=== PATIENT | male | born 1970 | race Two or more races ===

== ENCOUNTER 2017-10-07 12:38 | Emergency (ER) | payer BC, OTHER ==
[~2017-10-07] VITALS: Ht 172.7 cm; Wt 131.5 kg
[2017-10-07 12:46] VITALS: BP 159/92
[2017-10-07] MEDS ORDERED: KETOROLAC TROMETH 60MG/2ML VIAL IM ONE (13:45)
== END 2017-10-07 14:01 | disposition home or self-care (01) ==
LOC: ER 12:38
DX: M17.11 Unilateral primary osteoarthritis, right knee (principal); G89.29 Other chronic pain
CPT/HCPCS: 73562; 96372; 99284; J1885

== ENCOUNTER 2018-04-02 03:33 | Emergency (ER) | payer BC ==
[~2018-04-02] VITALS: Ht 167.6 cm; Wt 136.1 kg
[2018-04-02 03:54] VITALS: BP 138/99
[2018-04-02] MEDS ORDERED: cefTRIAXone SOD 1,000 MG VL IM ONE (05:15)
[2018-04-02] MEDS ORDERED: IBUPROFEN 800 MG TAB PO ONE (05:45)
== END 2018-04-02 05:55 | disposition home or self-care (01) ==
LOC: ER 03:35
DX: L02.11 Cutaneous abscess of neck (principal); H10.32 Unspecified acute conjunctivitis, left eye
CPT/HCPCS: 82962; 96372; 99283; J0696

== ENCOUNTER 2020-04-08 16:44 | Inpatient (IN) | payer BC ==
[~2020-04-08] VITALS: Ht 167.6 cm; Wt 127.0 kg
[2020-04-08] MEDS ORDERED: ACETAMINOPHEN 500 MG TAB PO ONE (17:00)
[2020-04-08 18:04] LABS: Basophils # (auto) 0 10 ^3/uL (0-0.2); Basophils % (auto) 0.3 % (0.0-2.0); Eosinophils # (auto) 0 10 ^3/uL (0-0.8); Hematocrit 38.8 % (41.0-53.0); Hemoglobin 13.6 g/dL (13.5-17.5); Lymphocytes # (auto) 0.8 10 ^3/uL (0.4-5.4); Lymphocytes % (auto) 10.8 % (10.0-50.0); Mean Corpuscular Hemoglobin 29.9 pg (28.0-32.0); Mean Corpuscular Volume 85.3 fL (80.0-100.0); Monocytes # (auto) 0.4 10 ^3/uL (0-1.3); Monocytes % (auto) 5.9 % (0.0-12.0); Neutrophils # (auto) 6.1 10 ^3/uL (1.6-8.6); Nucleated Red Blood Cells % 0.1 %; Platelet Count (auto) 213 10^3/uL (140-450); Red Blood Cells 4.55 10^6/uL (4.5-5.90); Red Cell Distribution Width 13.4 % (11.8-14.3); White Blood Cell 7.4 10^3/uL (4.4-10.8)
[2020-04-08 18:43] LABS: Calcium 8.4 mg/dL (8.5-10.1); Potassium 4.1 mmol/L (3.5-5.1)
[2020-04-08 18:46] LABS: BUN/Creatinine Ratio 12.3; Bilirubin, Total 0.6 mg/dL (0.2-1.0); Total Protein 7.9 g/dL (6.4-8.2)
[2020-04-08] MEDS ORDERED: AZITHROMYCIN 500MG/ 250ML 250 ML IV ONE (20:30)
[2020-04-08] MEDS ORDERED: DexAMETHasone SOD PHOS 10MG/1ML VIAL INJ IV ONE (20:30)
[2020-04-08] MEDS ORDERED: ONDANSETRON HCL 4 MG/2 ML VIAL IV PRN (22:00)
[2020-04-08] MEDS ORDERED: DEXTROSE (50%) 50ML SYRG IV PRN (22:00)
[2020-04-08] MEDS ORDERED: MORPHINE SULF INJ 2 MG/ML SYRINGE 1ML IV PRN (22:00)
[2020-04-08] MEDS ORDERED: ACETAMINOPHEN 500 MG TAB PO PRN (22:00)
[2020-04-08] MEDS ORDERED: NITROGLYCERIN 0.4 MG SL TAB SL PRN (22:00)
[2020-04-08 22:52] LABS: INR 1.21 (0.9-1.15); Partial Thromboplastin Time 29.9 sec (23.0-31.2)
[2020-04-08 23:40] LABS: CRP High Sensitivity > 19.0 mg/dL (< 0.3); Lactate Dehydrogenase 541 U/L (87-241); Magnesium 2.2 mg/dL (1.6-2.6)
[2020-04-08] MEDS: FAMOTIDINE 20 MG TAB PO SCH (23:49)
[2020-04-08] MEDS: ATORVASTATIN 20 MG TAB PO SCH (23:49)
[2020-04-08] MEDS: ACCU-CHEK COMFORT CURVE STRIP VI SCH (23:50)
[2020-04-08] MEDS: ENOXAPARIN SOD 40 MG/0.4 ML SYRINGE SC SCH (23:50)
[2020-04-08] MEDS: SODIUM CHLORIDE 0.9% 1,000 ML IV SCH (23:51)
[2020-04-09] MEDS: InsuLIN REG 1unit/0.01ml Soln (100units/ml) SC SCH ×5 (00:02→22:36)
[2020-04-09 06:06] LABS: Basophils # (auto) 0 10 ^3/uL (0-0.2); Basophils % (auto) 0.2 % (0.0-2.0); Eosinophils # (auto) 0 10 ^3/uL (0-0.8); Hematocrit 40.4 % (41.0-53.0); Lymphocytes # (auto) 0.6 10 ^3/uL (0.4-5.4); Lymphocytes % (auto) 8.7 % (10.0-50.0); Mean Corpuscular Hemoglobin 30.2 pg (28.0-32.0); Mean Corpuscular Hgb Conc. 34.8 g/dL (32.0-36.0); Mean Corpuscular Volume 86.8 fL (80.0-100.0); Monocytes # (auto) 0.1 10 ^3/uL (0-1.3); Monocytes % (auto) 2.2 % (0.0-12.0); Neutrophils # (auto) 5.8 10 ^3/uL (1.6-8.6); Neutrophils % (auto) 88.9 % (37.0-80.0); Nucleated Red Blood Cells % 0.1 %; Platelet Count (auto) 250 10^3/uL (140-450); Red Blood Cells 4.65 10^6/uL (4.5-5.90); Red Cell Distribution Width 13.4 % (11.8-14.3); White Blood Cell 6.6 10^3/uL (4.4-10.8)
[2020-04-09 06:28] LABS: Albumin 3.1 g/dL (3.4-5.0); Calcium 9.3 mg/dL (8.5-10.1)
[2020-04-09 06:31] LABS: BUN/Creatinine Ratio 15.3; Bilirubin, Total 0.6 mg/dL (0.2-1.0); Total Protein 8.3 g/dL (6.4-8.2)
[2020-04-09] MEDS: ACCU-CHEK COMFORT CURVE STRIP VI SCH ×4 (06:37→22:22)
[2020-04-09] MEDS: AZITHROMYCIN 500MG/ 250ML 250 ML IV SCH (09:21)
[2020-04-09] MEDS: ZINC SULFATE 220mg CAP or TAB PO SCH (09:21)
[2020-04-09] MEDS: CHOLECALCIFEROL (VITD3) 2,000 UNIT CAP PO SCH (09:21)
[2020-04-09] MEDS: ENOXAPARIN SOD 40 MG/0.4 ML SYRINGE SC SCH ×2 (09:21→22:22)
[2020-04-09] MEDS: ASCORBIC ACID 1,000 MG TAB PO SCH (09:21)
[2020-04-09] MEDS: FAMOTIDINE 20 MG TAB PO SCH (09:21)
[2020-04-09] MEDS: DexAMETHasone SOD PHOS 10MG/1ML VIAL INJ IV SCH (09:21)
[2020-04-09] MEDS ORDERED: LISINOPRIL 10 MG TAB PO SCH (10:00)
[2020-04-09] MEDS: SODIUM CHLORIDE 0.9% 1,000 ML IV SCH (11:35)
[2020-04-09] MEDS ORDERED: REMDESIVIR PER PHARMACY 0 ML IV SCH (14:45)
[2020-04-09] MEDS ORDERED: DEXTROSE (50%) 50ML SYRG IV PRN (14:45)
[2020-04-09] MEDS ORDERED: BUDESONIDE (INHALATION) 0.5 MG/2 ML NEB NEB ONE (15:15)
[2020-04-09] MEDS ORDERED: REMDESIVIR 200 MG in NS 210ml LOADING DOSE ADULT IV ONE (17:00)
[2020-04-09] MEDS: BUDESONIDE (INHALATION) 180 MCG IH IN SCH (18:42)
[2020-04-09] MEDS ORDERED: BUDESONIDE (INHALATION) 0.5 MG/2 ML NEB NEB SCH (22:00)
[2020-04-09] MEDS ORDERED: PATIENTS OWN MEDICATION (PULMICORT 360 MCG) IN SCH (22:00)
[2020-04-09] MEDS: ATORVASTATIN 20 MG TAB PO SCH (22:16)
[2020-04-10] MEDS: InsuLIN REG 1unit/0.01ml Soln (100units/ml) SC SCH ×4 (06:33→22:59)
[2020-04-10] MEDS: ACCU-CHEK COMFORT CURVE STRIP VI SCH ×4 (06:35→22:00)
[2020-04-10 08:00] VITALS: BP 125/75
[2020-04-10 08:08] LABS: Potassium 3.8 mmol/L (3.5-5.1)
[2020-04-10 08:12] LABS: Albumin 2.8 g/dL (3.4-5.0); BUN/Creatinine Ratio 22.2
[2020-04-10 08:14] LABS: Bilirubin, Total 0.4 mg/dL (0.2-1.0); Total Protein 7.4 g/dL (6.4-8.2)
[2020-04-10] MEDS: ZINC SULFATE 220mg CAP or TAB PO SCH (09:11)
[2020-04-10] MEDS: DexAMETHasone SOD PHOS 10MG/1ML VIAL INJ IV SCH (09:11)
[2020-04-10] MEDS: AZITHROMYCIN 500MG/ 250ML 250 ML IV SCH (09:11)
[2020-04-10] MEDS: ENOXAPARIN SOD 40 MG/0.4 ML SYRINGE SC SCH (09:11)
[2020-04-10] MEDS: CHOLECALCIFEROL (VITD3) 2,000 UNIT CAP PO SCH (09:14)
[2020-04-10] MEDS: ASCORBIC ACID 1,000 MG TAB PO SCH (09:14)
[2020-04-10] MEDS: BUDESONIDE (INHALATION) 180 MCG IH IN SCH ×2 (10:00→22:00)
[2020-04-10] MEDS ORDERED: FUROSEMIDE 20 MG/2 ML VIAL IV ONE (11:45)
[2020-04-10] MEDS ORDERED: POTASSIUM CHL 20 Meq TABLET PO ONE (11:45)
[2020-04-10] MEDS ORDERED: ASPirin 81 mg TAB PO ONE (13:15)
[2020-04-10] MEDS: REMDESIVIR 100 MG in SODIUM CHL 0.9% 250 ML IV SCH (16:07)
[2020-04-10 16:08] VITALS: BP 125/65
[2020-04-10 16:24] VITALS: BP 138/89
[2020-04-10] MEDS: ALBUTEROL SULF HFA 90MCG INH 200DOSE IN PRN ×2 (20:20→20:23)
[2020-04-10 20:58] LABS: Urine Bacteria FEW /hpf (None Seen); Urine Blood Negative /uL (Negative); Urine Mucus FEW (None Seen); Urine Specific Gravity 1.008 (1.001-1.035); Urine Sperm PRESENT /hpf (None Seen); Urine WBC 1 /hpf (0 - 3)
[2020-04-10] MEDS ORDERED: HYDROcodone-ACET 5/325MG TAB PO PRN (22:45)
[2020-04-10] MEDS: ATORVASTATIN 20 MG TAB PO SCH (22:56)
[2020-04-10] MEDS: ENOXAPARIN SOD 100 MG/1 ML SYRINGE SC SCH (23:00)
[2020-04-11] VITALS (8 sets, daily range): BP systolic 111–138; BP diastolic 55–87
[2020-04-11] MEDS: ACCU-CHEK COMFORT CURVE STRIP VI SCH ×4 (06:21→21:48)
[2020-04-11] MEDS: InsuLIN REG 1unit/0.01ml Soln (100units/ml) SC SCH ×4 (06:21→21:48)
[2020-04-11 08:41] LABS: Calcium 9.4 mg/dL (8.5-10.1); Potassium 4.7 mmol/L (3.5-5.1)
[2020-04-11 08:45] LABS: Albumin 3.1 g/dL (3.4-5.0)
[2020-04-11 09:14] LABS: Bilirubin, Total 0.4 mg/dL (0.2-1.0); Total Protein 7.6 g/dL (6.4-8.2)
[2020-04-11] MEDS ORDERED: ASPirin 81 mg TAB PO SCH (10:00)
[2020-04-11] MEDS: BUDESONIDE (INHALATION) 180 MCG IH IN SCH ×3 (10:00→22:01)
[2020-04-11] MEDS: POTASSIUM CHL 20 Meq TABLET PO SCH (11:17)
[2020-04-11] MEDS: DexAMETHasone SOD PHOS 10MG/1ML VIAL INJ IV SCH (11:18)
[2020-04-11] MEDS: ZINC SULFATE 220mg CAP or TAB PO SCH (11:18)
[2020-04-11] MEDS: ASCORBIC ACID 1,000 MG TAB PO SCH (11:18)
[2020-04-11] MEDS: FUROSEMIDE 20 MG/2 ML VIAL IV SCH (11:19)
[2020-04-11] MEDS: CHOLECALCIFEROL (VITD3) 2,000 UNIT CAP PO SCH (11:19)
[2020-04-11] MEDS: ENOXAPARIN SOD 100 MG/1 ML SYRINGE SC SCH (11:19)
[2020-04-11] MEDS: AZITHROMYCIN 500MG/ 250ML 250 ML IV SCH (11:28)
[2020-04-11] MEDS ORDERED: FAMOTIDINE (10MG/ML) 2ML VL IV ONE (13:15)
[2020-04-11] MEDS: REMDESIVIR 100 MG in SODIUM CHL 0.9% 250 ML IV SCH (15:42)
[2020-04-11] MEDS: ENOXAPARIN SOD 40 MG/0.4 ML SYRINGE SC SCH (21:32)
[2020-04-11] MEDS: ATORVASTATIN 20 MG TAB PO SCH (21:32)
[2020-04-11] MEDS: FAMOTIDINE (10MG/ML) 2ML VL IV SCH (21:32)
[2020-04-12] VITALS: BP 129/55
[2020-04-12] MEDS: InsuLIN REG 1unit/0.01ml Soln (100units/ml) SC SCH ×4 (06:10→22:55)
[2020-04-12] MEDS: ACCU-CHEK COMFORT CURVE STRIP VI SCH ×4 (06:10→22:00)
[2020-04-12] MEDS: ALBUTEROL SULF HFA 90MCG INH 200DOSE IN PRN ×2 (07:35→21:20)
[2020-04-12 08:00] VITALS: BP 130/87
[2020-04-12 08:19] LABS: Basophils # (auto) 0 10 ^3/uL (0-0.2); Basophils % (auto) 0.1 % (0.0-2.0); Eosinophils # (auto) 0 10 ^3/uL (0-0.8); Hematocrit 38.3 % (41.0-53.0); Hemoglobin 13.6 g/dL (13.5-17.5); Lymphocytes # (auto) 1.3 10 ^3/uL (0.4-5.4); Lymphocytes % (auto) 13.4 % (10.0-50.0); Mean Corpuscular Hemoglobin 29.8 pg (28.0-32.0); Mean Corpuscular Hgb Conc. 35.4 g/dL (32.0-36.0); Mean Corpuscular Volume 84.1 fL (80.0-100.0); Monocytes # (auto) 1.1 10 ^3/uL (0-1.3); Monocytes % (auto) 10.7 % (0.0-12.0); Neutrophils # (auto) 7.6 10 ^3/uL (1.6-8.6); Neutrophils % (auto) 75.8 % (37.0-80.0); Nucleated Red Blood Cells % 0.1 %; Platelet Count (auto) 344 10^3/uL (140-450); Red Blood Cells 4.55 10^6/uL (4.5-5.90); Red Cell Distribution Width 13.2 % (11.8-14.3)
[2020-04-12 08:29] LABS: Albumin 2.9 g/dL (3.4-5.0); Calcium 9.1 mg/dL (8.5-10.1); Potassium 3.8 mmol/L (3.5-5.1)
[2020-04-12 08:34] LABS: BUN/Creatinine Ratio 22.2; Bilirubin, Total 0.5 mg/dL (0.2-1.0); Total Protein 7.7 g/dL (6.4-8.2)
[2020-04-12] MEDS: ENOXAPARIN SOD 40 MG/0.4 ML SYRINGE SC SCH ×2 (10:00→22:56)
[2020-04-12] MEDS: FAMOTIDINE (10MG/ML) 2ML VL IV SCH ×2 (10:00→22:56)
[2020-04-12] MEDS: CHOLECALCIFEROL (VITD3) 2,000 UNIT CAP PO SCH (10:00)
[2020-04-12] MEDS: DexAMETHasone SOD PHOS 10MG/1ML VIAL INJ IV SCH (10:50)
[2020-04-12] MEDS: ASCORBIC ACID 1,000 MG TAB PO SCH (10:50)
[2020-04-12] MEDS: POTASSIUM CHL 20 Meq TABLET PO SCH (10:50)
[2020-04-12] MEDS: ZINC SULFATE 220mg CAP or TAB PO SCH (10:50)
[2020-04-12] MEDS: AZITHROMYCIN 500MG/ 250ML 250 ML IV SCH (10:51)
[2020-04-12] MEDS: FUROSEMIDE 20 MG/2 ML VIAL IV SCH (10:51)
[2020-04-12 15:19] VITALS: BP 117/86
[2020-04-12] MEDS: REMDESIVIR 100 MG in SODIUM CHL 0.9% 250 ML IV SCH (15:20)
[2020-04-12 15:35] VITALS: BP 121/77
[2020-04-12 16:11] VITALS: BP 121/77
[2020-04-12] MEDS: BUDESONIDE (INHALATION) 180 MCG IH IN SCH (21:20)
[2020-04-12] MEDS: ATORVASTATIN 20 MG TAB PO SCH (22:56)
[2020-04-13] VITALS: BP 109/76
[2020-04-13] MEDS: BUDESONIDE (INHALATION) 180 MCG IH IN SCH ×3 (06:24→19:40)
[2020-04-13] MEDS: ALBUTEROL SULF HFA 90MCG INH 200DOSE IN PRN ×3 (06:24→19:40)
[2020-04-13] MEDS: InsuLIN REG 1unit/0.01ml Soln (100units/ml) SC SCH ×4 (06:25→21:10)
[2020-04-13] MEDS: ACCU-CHEK COMFORT CURVE STRIP VI SCH ×4 (06:39→21:08)
[2020-04-13 06:45] LABS: Potassium 3.8 mmol/L (3.5-5.1)
[2020-04-13 06:51] LABS: Albumin 3.1 g/dL (3.4-5.0); BUN/Creatinine Ratio 28.2
[2020-04-13 06:54] LABS: Bilirubin, Total 0.5 mg/dL (0.2-1.0); Total Protein 7.6 g/dL (6.4-8.2)
[2020-04-13 08:00] VITALS: BP 108/71
[2020-04-13 08:10] VITALS: BP 108/71
[2020-04-13] MEDS: CHOLECALCIFEROL (VITD3) 2,000 UNIT CAP PO SCH (10:00)
[2020-04-13] MEDS: ENOXAPARIN SOD 40 MG/0.4 ML SYRINGE SC SCH ×2 (10:00→21:07)
[2020-04-13] MEDS: FAMOTIDINE (10MG/ML) 2ML VL IV SCH ×2 (10:00→21:07)
[2020-04-13] MEDS: POTASSIUM CHL 20 Meq TABLET PO SCH (10:36)
[2020-04-13] MEDS: ASCORBIC ACID 1,000 MG TAB PO SCH (10:36)
[2020-04-13] MEDS: ZINC SULFATE 220mg CAP or TAB PO SCH (10:36)
[2020-04-13] MEDS: AZITHROMYCIN 500MG/ 250ML 250 ML IV SCH (10:37)
[2020-04-13] MEDS: DexAMETHasone SOD PHOS 10MG/1ML VIAL INJ IV SCH (10:37)
[2020-04-13] MEDS: FUROSEMIDE 20 MG/2 ML VIAL IV SCH (10:37)
[2020-04-13 16:11] VITALS: BP 105/76
[2020-04-13 16:31] VITALS: BP 105/76
[2020-04-13] MEDS: REMDESIVIR 100 MG in SODIUM CHL 0.9% 250 ML IV SCH (16:54)
[2020-04-13 17:09] VITALS: BP 91/69
[2020-04-13] MEDS: TEMAZEPAM 15 MG CAP PO PRN (21:06)
[2020-04-13] MEDS: ATORVASTATIN 20 MG TAB PO SCH (21:09)
[2020-04-14] VITALS: BP 110/70
[2020-04-14] MEDS: InsuLIN REG 1unit/0.01ml Soln (100units/ml) SC SCH ×4 (06:16→22:57)
[2020-04-14] MEDS: ACCU-CHEK COMFORT CURVE STRIP VI SCH ×4 (06:16→22:00)
[2020-04-14 08:00] VITALS: BP 99/72
[2020-04-14] MEDS: FUROSEMIDE 20 MG/2 ML VIAL IV SCH (10:00)
[2020-04-14] MEDS: ENOXAPARIN SOD 40 MG/0.4 ML SYRINGE SC SCH ×2 (10:00→21:41)
[2020-04-14] MEDS: CHOLECALCIFEROL (VITD3) 2,000 UNIT CAP PO SCH (10:17)
[2020-04-14] MEDS: DexAMETHasone SOD PHOS 10MG/1ML VIAL INJ IV SCH (10:17)
[2020-04-14] MEDS: FAMOTIDINE (10MG/ML) 2ML VL IV SCH ×2 (10:17→21:41)
[2020-04-14] MEDS: ZINC SULFATE 220mg CAP or TAB PO SCH (10:18)
[2020-04-14] MEDS: POTASSIUM CHL 20 Meq TABLET PO SCH (10:18)
[2020-04-14] MEDS: ASCORBIC ACID 1,000 MG TAB PO SCH (10:19)
[2020-04-14 16:12] VITALS: BP 108/70
[2020-04-14] MEDS: ALBUTEROL SULF HFA 90MCG INH 200DOSE IN PRN (20:50)
[2020-04-14] MEDS: BUDESONIDE (INHALATION) 180 MCG IH IN SCH ×2 (20:50→21:58)
[2020-04-14] MEDS: TEMAZEPAM 15 MG CAP PO PRN (21:41)
[2020-04-14] MEDS: ATORVASTATIN 20 MG TAB PO SCH (21:41)
[2020-04-15] VITALS: BP 122/60
[2020-04-15] MEDS: InsuLIN REG 1unit/0.01ml Soln (100units/ml) SC SCH ×2 (06:38→11:30)
[2020-04-15] MEDS: ACCU-CHEK COMFORT CURVE STRIP VI SCH ×2 (06:39→11:30)
[2020-04-15 08:00] VITALS: BP 148/86
[2020-04-15] MEDS: ENOXAPARIN SOD 40 MG/0.4 ML SYRINGE SC SCH (10:00)
[2020-04-15] MEDS: DexAMETHasone SOD PHOS 10MG/1ML VIAL INJ IV SCH (10:13)
[2020-04-15] MEDS: FAMOTIDINE (10MG/ML) 2ML VL IV SCH (10:14)
[2020-04-15] MEDS: FUROSEMIDE 20 MG/2 ML VIAL IV SCH (10:14)
[2020-04-15] MEDS: ZINC SULFATE 220mg CAP or TAB PO SCH (10:15)
[2020-04-15] MEDS: ASCORBIC ACID 1,000 MG TAB PO SCH (10:18)
[2020-04-15] MEDS: CHOLECALCIFEROL (VITD3) 2,000 UNIT CAP PO SCH (10:18)
[2020-04-15] MEDS: POTASSIUM CHL 20 Meq TABLET PO SCH (10:18)
== END 2020-04-15 12:30 | disposition home or self-care (01) | DRG 871 ==
LOC: ER 16:44 → TELE 16:45 → TELE-WESTW 04-09 23:58
PROVIDERS: ADMIT Nurse Practitioner; ATTEND Internal Medicine
PROC: XW033E5 Introduction of Remdesivir Anti-infective into Peripheral Vein, Percutaneous Approach, New Technology Group 5 (ICD-10-PCS; principal; 2020-04-09)
DX: A41.89 Other specified sepsis (principal); U07.1 COVID-19; J96.01 Acute respiratory failure with hypoxia; J12.82 Pneumonia due to coronavirus disease 2019; D68.59 Other primary thrombophilia; Z68.42 Body mass index [BMI] 45.0-49.9, adult; E66.01 Morbid (severe) obesity due to excess calories; E11.9 Type 2 diabetes mellitus without complications; I10 Essential (primary) hypertension; E78.5 Hyperlipidemia, unspecified; G47.33 Obstructive sleep apnea (adult) (pediatric); R53.81 Other malaise; F41.9 Anxiety disorder, unspecified; Z79.82 Long term (current) use of aspirin; Z83.3 Family history of diabetes mellitus
CPT/HCPCS: 36415; 71045; 80053; 81001; 82270; 82306; 82728; 82962; 83036; 83605; 83615; 83735; 84443; 84484; 85025; 85379; 85610; 85730; 86141; 86850; 86900; 86901; 87040; 87426; 93306; 94640; 96361; 96365; 96375; G0378; J1100; J1815; J3490

== ENCOUNTER 2021-10-04 08:20 | Emergency (ER) | payer SELFPAY ==
[~2021-10-04] VITALS: Ht 165.1 cm; Wt 113.4 kg
[2021-10-04 09:27] VITALS: BP 137/87
[2021-10-04] MEDS ORDERED: IBUP800T26 PO (10:52)
[2021-10-04] MEDS ORDERED: KETOROLAC TROMETH 60MG/2ML VIAL IM ONE (11:00)
== END 2021-10-04 10:53 | disposition home or self-care (01) ==
LOC: ER 08:20
DX: S80.02XA Contusion of left knee, initial encounter (principal); M54.50 Low back pain, unspecified; I11.0 Hypertensive heart disease with heart failure; I50.9 Heart failure, unspecified; Z79.1 Long term (current) use of non-steroidal anti-inflammatories (NSAID); W18.39XA Other fall on same level, initial encounter; Y93.89 Activity, other specified; Y92.89 Other specified places as the place of occurrence of the external cause; Y99.8 Other external cause status
CPT/HCPCS: 73562; 73610; 93971; 96372; 99284; J1885

== ENCOUNTER 2022-01-13 06:43 | Emergency (ER) | payer OTHER ==
[~2022-01-13] VITALS: Ht 167.6 cm; Wt 127.0 kg
[~2022-01-13 06:43] MED LIST: IBUP800T26 PO
[2022-01-13 07:27] VITALS: BP 106/93
[2022-01-13] MEDS ORDERED: cefTRIAXone SOD 1,000 MG VL IM ONE (08:00)
[2022-01-13] MEDS ORDERED: CEPH-510 PO (08:01)
== END 2022-01-13 08:23 | disposition home or self-care (01) ==
LOC: ER 06:43
DX: J34.0 Abscess, furuncle and carbuncle of nose (principal); I10 Essential (primary) hypertension; E11.9 Type 2 diabetes mellitus without complications; Z79.1 Long term (current) use of non-steroidal anti-inflammatories (NSAID); Z79.899 Other long term (current) drug therapy
CPT/HCPCS: 10060; 96372; 99283; J0696

== ENCOUNTER 2024-07-01 16:43 | Emergency (ER) | payer OTHER ==
[~2024-07-01] VITALS: Ht 170.2 cm; Wt 118.5 kg
[~2024-07-01 16:43] MED LIST changes: +CEPH-510 PO; +IBUP-1455 PO; -IBUP800T26 PO
--- NOTE | 2024-07-01 17:20 | ED.PDOC ---
History of present illness HPI Comments 53 y.o male with PMHx of DM, HTN and hyperlipidemia, presents to the ED for a chief complaint of dizziness associated with nausea and excessive sweating that started this morning at work. Patient reports symptoms have progressively worsened as the day went on. Patient has been out of his metformin for 2 months, his called the PCP and has an appointment to see her this August 2024. Patient is non complaint with the rest of his medications. Patient denies any chest pain, fever, chills, vomiting, diarrhea, SOB. Patient admits to occasional use of alcohol but denies substance or tobacco use. Chief Complaint: Hyperglycemia Time Seen by MD: 16:57 Primary Care Provider: venus History of present illness: Nurses Notes, Medications, Allergies Allergies: Coded Allergies: NO KNOWN ALLERGIES (Unverified , 10/07/17) Home Meds Active Scripts Cephalexin ( Keflex 500) 500 Mg Cap, 1 CAP PO QID for 10 Days, #40 CAP Prov:ALLYN AMIN 01/13/22 Ibuprofen Micronized (Ibuprofen) 800 Mg Tab, 800 MG PO Q6HP PRN, #30 TAB 0 Refills Prov:NGOC MCCORD 10/04/21 Information Source: Patient Mode of Arrival: Ambulatory Timing: Hours Duration: Since onset [place]: Sweaty Symptoms: Sweaty History of: Diabetes Modifying factors: Nothing Associated signs and symptoms: Nausea Past Medical History PAST MEDICAL HISTORY: DM, High Lipids, HTN Surgical History (Other): right knee Family History Family History: Family hx of DM Social History Smoker: Non-Smoker Alcohol: Occasionally Drugs: Denies Drug Use Lives In: Home Constitutional: denies: chills, diaphoresis, fatigue, fever, malaise, sweats, weakness, others EENTM: denies: blurred vision, double vision, ear bleeding, ear discharge, ear drainage, ear pain, ear ringing, eye pain, eye redness, hearing loss, mouth pain, mouth swelling, nasal discharge, nose bleeding, nose congestion, nose pain, photophobia, tearing, throat pain, throat swelling, voice changes, others Respiratory: denies: cough, hemoptysis, orthopnea, SOB at rest, shortness of breath, SOB with excertion, stridor, wheezing, others Cardiovascular: denies: chest pain, dizzy spells, diaphoresis, Dyspnea on exertion, edema, irregular heart beat, left arm pain, lightheadedness, palpitations, PND, syncope, others Gastrointestinal: reports: nausea; denies: abdomen distended, abdominal pain, blood streaked bowels, constipated, diarrhea, dysphagia, difficulty swallowing, hematemesis, melena, poor appetite, poor fluid intake, rectal bleeding, rectal pain, vomiting, others Genitourinary: denies: burning, dysuria, flank pain, frequency, hematuria, incontinence, penile discharge, penile sore, pain, testicle pain, testicle swelling, urgency, others Neurological: reports: dizziness; denies: fainting, headache, left sided numbness, left sided weakness, numbness, paresthesia, pre-existing deficit, right sided numbness, right sided weakness, seizure, speech problems, tingling, tremors, weakness, others Musculoskeletal: denies: back pain, gout, joint pain, joint swelling, muscle pain, muscle stiffness, neck pain, others Integumetry: denies: bruises, change in color, change in hair/nails, dryness, laceration, lesions, lumps, rash, wounds, others Allergic/Immunocompromised: denies: Difficulty Healing, Frequent Infections, Hives, Itching, others Hematologic/Lymphatic: denies: anemia, blood clots, easy bleeding, easy bruising, swollen glands, others Endocrine: reports: excessive sweating; denies: excessive hunger, excessive thirst, excessive urination, flushing, intolerance to cold, intolerance to heat, unexplained weight gain, unexplained weight loss, others Psychiatric: denies: anxiety, bipolar disorder, depression, hopeless, panic disorder, schizophrenia, sleepless, suicidal, others Unable to Obtain due to: Dementia Physical Exam General Appearance: No Apparent Distress HEENT: Normal ENT Inspection, Pharynx Normal, TMs Normal Neck: Full Range of Motion, Non-Tender, Normal, Normal Inspection Respiratory: Chest Non-Tender, Lungs Clear, No Accessory Muscle Use, No Respiratory Distress, Normal Breath Sounds Cardiovascular: No Edema, No JVD, No Murmur, No Gallop, Normal Peripheral Pulses, Regular Rate/Rhythm Breast Exam: Deferred Gastrointestinal: No Organomegaly, Non Tender, No Pulsatile Mass, Normal Bowel Sounds, Soft Genitalia: Deferred Pelvic: Deferred Rectal: Deferred Extremities: No calf tenderness, Normal capillary refill, Normal inspection, Normal range of motion, Non-tender, No pedal edema Musculoskeletal : Apperance: Normal Neurologic: Alert, patient assistant II-XII nml as Tested, No Motor Deficits, Normal Affect, Normal Mood, No Sensory Deficits Cerebellar Function: Normal Reflexes: Normal Skin: Dry, Normal Color, Warm Lymphatic: No Adenopathy Was a procedure done? Was a procedure done?: No Differential Diagnosis (DM) Differential Diagnosis: Dehydration, Electrolyte Abnormality Other Differential Diagnosis medication noncompliance, vertigo, electrolyte imbalance X-Ray, Labs, Meds, VS Vital Signs Date Time Temp Pulse Resp B/P (MAP) Pulse Ox O2 Delivery O2 Flow Rate FiO2 07/01/24 19:41 98.3 85 18 114/78 (90) 93 98.3 07/01/24 17:04 98.6 95 16 123/96 (105) 94 98.6 Lab Test 07/01/24 19:23 07/01/24 17:37 07/01/24 17:12 07/01/24 16:59 Range/Units POC Glucose 338 H 362 H 70-106 mg/dl White Blood Count 9.7 4.4-10.8 10^3/uL Red Blood Count 5.07 4.5-5.90 10^6/uL Hemoglobin 14.7 13.5-17.5 g/dL Hematocrit 43.4 41.0-53.0 % Mean Corpuscular Volume 85.7 80.0-100.0 fL Mean Corpuscular Hemoglobin 29.1 28.0-32.0 pg Mean Corpuscular Hemoglobin Concent 33.9 32.0-36.0 g/dL Red Cell Distribution Width 13.2 11.8-14.3 % Platelet Count 283 140-450 10^3/uL Mean Platelet Volume 7.9 6.9-10.8 fL Neutrophils (%) (Auto) 66.3 37.0-80.0 % Lymphocytes (%) (Auto) 26.5 10.0-50.0 % Monocytes (%) (Auto) 5.8 0.0-12.0 % Eosinophils (%) (Auto) 0.5 0.0-7.0 % Basophils (%) (Auto) 0.9 0.0-2.0 % Neutrophils # (Auto) 6.5 1.6-8.6 10 ^3/uL Lymphocytes # (Auto) 2.6 0.4-5.4 10 ^3/uL Monocytes # (Auto) 0.6 0-1.3 10 ^3/uL Eosinophils # (Auto) 0 0-0.8 10 ^3/uL Basophils # (Auto) 0.1 0-0.2 10 ^3/uL Nucleated Red Blood Cells 0.0 % Sodium Level 134 L 136-145 mmol/L Potassium Level 4.2 3.5-5.1 mmol/L Chloride Level 98 98-107 mmol/L Carbon Dioxide Level 26 20-31 mmol/L Anion Gap 10 5-15 Blood Urea Nitrogen 16 9-23 mg/dL Creatinine 1.13 0.700-1.30 mg/dL Glomerular Filtration Rate Calc 78 >90 mL/min BUN/Creatinine Ratio 14.2 10.0-20.0 Serum Glucose 385 H 74-106 mg/dL Calcium Level 10.5 H 8.7-10.4 mg/dL Urine Color Light-yellow Yellow Urine Clarity Clear Clear Urine pH 5.0 5.0-9.0 Urine Specific [place] 1.040 H 1.001-1.035 Urine Protein Negative Negative Urine Ketones Negative Negative Urine Blood Negative Negative /uL Urine Nitrite Negative Negative Urine Bilirubin Negative Negative Urine Urobilinogen Normal Negative mg/dL Urine Leukocyte Esterase Negative Negative /uL Urine RBC None seen 0 - 3 /hpf Urine Microscopic WBC 0-3 /HPF Urine Squamous Epithelial Cells None seen <5 /hpf Urine Bacteria None seen None Seen /hpf Urine Mucus Few None Seen Urine Yeast (Budding) Occasional None Seen /hpf Urine Glucose 4+ H Normal mg/dL Current Medications Medications (Trade) Dose Ordered Sig/Scott Route Start Time Stop Time Status Last Admin Sodium Chloride 500 ml @ 500 mls/hr Q1H ONCE IV 07/01/24 17:15 07/01/24 18:14 DC 07/01/24 19:35 The patient was given normal saline at 500 cc bolus. The patient was now normotensive. The patient was encouraged to take the medications. The patient's CBC is within normal limits The patient's chemistry panel shows some mild hyperglycemia The patient was being discharged and will follow up with the primary care doctor The patient will return to the emergency department's condition worsens. Time of 1ST Reevaluation: 17:16 Reevaluation 1ST: Unchanged Patient Education/Counseling: Diagnosis, Treatment, Prognosis, Need For Follow Up Family Education/Counseling: No Family Present Departure 1 Departure Time of Disposition: 19:43 Impression: Primary Impression: Hypertensive urgency Disposition: 01 HOME / SELF CARE / HOMELESS Condition: Fair Discharged With: Self Critical Care Note Critical Care Time?: No Stability Stability form required: No I personally scribed for LEANDRO CALDERÓN MD ([email or web address]) on 07/01/24 at 17:20. Electronically submitted by Rosy Martinez ([facility]). LEANDRO CALDERÓN MD Jul 01, 2024 17:20
[2024-07-01 17:32] LABS: Urine Bacteria None Seen /hpf (None Seen)
[2024-07-01 17:50] LABS: Urine Blood Negative /uL (Negative); Urine Budding Yeast OCCASIONAL /hpf (None Seen); Urine Clarity Clear (Clear); Urine Color Light-Yellow (Yellow); Urine Mucus FEW (None Seen); Urine Protein, UAD Negative (Negative); Urine Squamous Epithelial Cell None Seen /hpf (<5); Urine Urobilinogen Normal (Negative)
[2024-07-01 18:09] LABS: Chloride 98 mmol/L (98-107); Potassium 4.2 mmol/L (3.5-5.1)
[2024-07-01 18:10] LABS: Anion Gap 10 (5-15); Carbon Dioxide 26 mmol/L (20-31)
[2024-07-01 18:14] LABS: Basophils # (auto) 0.1 10 ^3/uL (0-0.2); Basophils % (auto) 0.9 % (0.0-2.0); Eosinophils # (auto) 0 10 ^3/uL (0-0.8); Eosinophils % (auto) 0.5 % (0.0-7.0); Hematocrit 43.4 % (41.0-53.0); Hemoglobin 14.7 g/dL (13.5-17.5); Lymphocytes # (auto) 2.6 10 ^3/uL (0.4-5.4); Lymphocytes % (auto) 26.5 % (10.0-50.0); Mean Corpuscular Hemoglobin 29.1 pg (28.0-32.0); Mean Corpuscular Hgb Conc. 33.9 g/dL (32.0-36.0); Mean Corpuscular Volume 85.7 fL (80.0-100.0); Monocytes # (auto) 0.6 10 ^3/uL (0-1.3); Monocytes % (auto) 5.8 % (0.0-12.0); Neutrophils # (auto) 6.5 10 ^3/uL (1.6-8.6); Neutrophils % (auto) 66.3 % (37.0-80.0); Platelet Count (auto) 283 10^3/uL (140-450); Red Blood Cells 5.07 10^6/uL (4.5-5.90); Red Cell Distribution Width 13.2 % (11.8-14.3); White Blood Cell 9.7 10^3/uL (4.4-10.8)
[2024-07-01 18:15] LABS: BUN/Creatinine Ratio 14.2 (10.0-20.0); Blood Urea Nitrogen 16 mg/dL (9-23)
[2024-07-01 18:44] LABS: Calcium 10.5 mg/dL (8.7-10.4); Glucose 385 mg/dL (74-106); Sodium 134 mmol/L (136-145)
[2024-07-01] MEDS: SODIUM CHLORIDE 0.9% 500 ML IV ONE (19:35)
[2024-07-01 19:41] VITALS: BP 114/78; PULSE 85; RESP 18; TEMP 98.3; O2SAT 93
[2024-07-01] MEDS: InsuLIN REG 1unit/0.01ml Soln (100units/ml) IV ONE (19:47)
[2024-07-01] MEDS ORDERED: METF-370 PO (19:52)
== END 2024-07-01 20:29 | disposition home or self-care (01) ==
LOC: ER 16:43
DX: I16.0 Hypertensive urgency (principal); E11.9 Type 2 diabetes mellitus without complications; E78.5 Hyperlipidemia, unspecified; I10 Essential (primary) hypertension; Z79.899 Other long term (current) drug therapy
CPT/HCPCS: 36415; 80048; 81001; 82947; 85025; 96361; 96374; 99283; J1815; J7120; 82962